=== PATIENT | male | born 1980 | race Caucasian/White ===

== ENCOUNTER → 2019-08-12 11:46 | Outpatient (CLI) | payer OTHER, SELFPAY ==
--- NOTE | 2019-08-12 | DI.MRI.S_ITS ---
PROCEDURE: MR WRIST RT WO CON INDICATIONS: Pain in right wrist TECHNIQUE: Noncontrast coronal proton density fast spin echo and T2 fast spin echo with fat saturation; coronal 3-D gradient echo, axial T1 spin echo and T2 fast spin echo with fat saturation, sagittal T1 spin echo through the wrist. COMPARISON: None. FINDINGS: Image quality: Excellent. Bones and cartilage: The carpal bones are normally aligned. Mild edema involving distal radius and adjacent navicular bone is seen. No discrete fracture line is noted. Mild radiocarpal joint osteoarthritic changes are seen with joint space narrowing. No evidence for avascular necrosis. Carpal ligaments: There is heterogeneous signal within the region of scapholunate ligament with tiny 2-3 mm cystic area is seen over dorsal component of the scapholunate ligament concerning for partial thickness tear of the ligament. The lunotriquetral ligament is intact. In the absence of intra-articular contrast, the extrinsic carpal ligaments are not well identified. On sagittal images, the pisohamate ligament appears intact. Triangular fibrocartilage complex: Signal abnormality over ulnar periphery of triangular fibrocartilage complex is seen concerning for triangular fibrocartilage tear near its ulnar insertion. The adjacent meniscal homolog appears normal in the absence of intra-articular contrast. The extensor carpi ulnaris tendon is normal in location and morphology. Tendons and soft tissues: The carpal tunnel structures appear normal, including the median nerve. The ulnar nerve appears normal within Guyon's canal. All six extensor tendon compartments demonstrate normal morphology, without pathologic tendon sheath fluid. IMPRESSION: 1. Mild wrist joint osteoarthritis and nonspecific mild marrow edema involving distal radius and navicular bone. No fracture or dislocation. 2. Finding is concerning for partial thickness tear involving dorsal component of scapholunate ligament with adjacent 2-3 mm tiny ganglion cyst. Lunotriquetral ligament is intact. 3. Possible subtle regular fibrocartilage tear near its ulnar insertion. 4. Wrist tendons are grossly intact. Dictated by: Teddy Olivia M.D. on 08/13/2019 at 11:57 Approved by: Teddy Olivia M.D. on 08/13/2019 at 12:03
== END ==
PROVIDERS: PCP General Practice; Visit Provider Preventive Medicine Public Health & General Preventive Medicine
DX: M25.531 Pain in right wrist (principal); M19.031 Primary osteoarthritis, right wrist
CPT/HCPCS: 73221

== ENCOUNTER → 2019-09-18 19:25 | Outpatient (CLI) | payer OTHER, SELFPAY ==
--- NOTE | 2019-09-18 19:31 | DI.MRI.S_ITS ---
PROCEDURE: MR ELBOW RT WO CON INDICATIONS: MEDIAL EPICCONDYLITIS TECHNIQUE: Noncontrast coronal proton density fast spin echo and T2 fast spin echo with fat saturation, axial and sagittal T1 spin echo and T2 fast spin echo with fat saturation through the elbow. COMPARISON: None. FINDINGS: Image quality: Excellent. Lateral structures: The lateral ulnar collateral ligament and radial collateral ligament both appear intact. The overlying common extensor tendon also appears normal. Medial structures: Heterogeneous signal involving proximal ulnar collateral ligaments is seen suggestive of moderate grade partial-thickness tear near its epicondylar insertion. The overlying common flexor tendon also appears thickened with heterogeneous intrasubstance signal suggestive of tendinosis or low-grade partial-thickness tear. The ulnar nerve appears normal in size and signal within the cubital tunnel. Anterior structures: The biceps and brachialis tendons both appear intact as they insert onto the proximal radius and ulna, respectively. No bicipitoradial bursal fluid. The median and radial neurovascular bundles appear normal; no focal muscle atrophy to suggest nerve impingement. Posterior structures: The conjoint triceps tendon from the long and lateral heads appears intact. The medial head of the triceps tendon also appears normal, with direct muscle insertion onto the olecranon. No olecranon bursal fluid. Bone and cartilage: No bone marrow contusions or fractures. No osteochondral injuries. IMPRESSION: 1. Tendinosis and low-grade partial-thickness tear involving the common flexor tendon origin. Local moderate grade sprain/partial thickness tear involving ulnar collateral ligaments near their proximal insertions. Finding is consistent with medial epicondylitis. 2. Rest of the elbow tendons and ligaments are intact. No marrow signal abnormality. Dictated by: Teddy Olivia M.D. on 09/19/2019 at 10:28 Approved by: Teddy Olivia M.D. on 09/19/2019 at 10:56
--- NOTE | 2019-09-18 19:31 | DI.MRI.S_ITS ---
PROCEDURE: MR KNEE RT WO CON INDICATIONS: PAIN IN RIGHT KNEE TECHNIQUE: Noncontrast sagittal PD fast spin echo and T2 fast spin echo with fat saturation, sagittal 3-D FLASH with fat saturation; coronal T1 spin echo and PD fast spin echo with fat saturation, and axial PD fast spin echo with fat saturation through the knee. COMPARISON: None. FINDINGS: Image quality: Excellent. Menisci: There is degenerative signal within the new meniscus in the body and posterior horn extending to the free edge and superior articular surface compatible with mild degenerative tearing. The lateral meniscus appears intact. The meniscal root ligaments also appear intact. Cruciate ligaments: The anterior and posterior cruciate ligaments appear intact. Medial structures: The medial collateral ligament appears intact. The semimembranosus tendon insertions, and meniscocapsular junction appear intact. Visualized portions of the pes anserinus tendons appear within normal limits without discrete bursal fluid collections. Lateral structures: The lateral collateral ligament, long and short heads of the biceps femoris tendon appear intact. The popliteus tendon appears intact. Iliotibial band appears normal. Anterior structures: The quadriceps tendon appears intact. There is mild tendinopathy of the proximal patellar tendon with mild intrasubstance partial tearing at its origin. There is associated mild peritendinous edema proximally. There is a mild lateral tilt of the patella. No femoral trochlear dysplasia or ventral trochlear prominence. Mild edema is also noted within the superolateral aspect of Hoffa's fat pad. Bones and cartilage: No bone marrow contusions or fractures. The cartilage of the medial and lateral femorotibial compartments, as well as the patellofemoral compartment, appears grossly preserved in thickness. There is minimal superficial chondral irregularity in the medial and patellofemoral compartments. Joint space: There is physiologic knee joint fluid. No Sanderson's cyst. Normal appearing synovial plicae are incidentally noted. IMPRESSION: 1. Tendinopathy in the proximal patellar tendon with mild intrasubstance partial tearing at its origin. There is associated mild peritendinitis. 2. Mild lateral tilt of the patella with mild edema within the superolateral aspect of Hoffa's fat pad. The findings may reflect mild impingement in the appropriate clinical context. 3. Mild degenerative tearing in the body and posterior horn of the medial meniscus. Dictated by: Cachorro Johnston M.D. on 09/19/2019 at 9:13 Approved by: Cachorro Johnston M.D. on 09/19/2019 at 9:21
== END ==
PROVIDERS: PCP General Practice; Visit Provider Orthopaedic Surgery
DX: M25.561 Pain in right knee (principal); S76.111A Strain of right quadriceps muscle, fascia and tendon, initial encounter; M76.51 Patellar tendinitis, right knee; M25.461 Effusion, right knee; M23.221 Derangement of posterior horn of medial meniscus due to old tear or injury, right knee
CPT/HCPCS: 73221; 73721